=== PATIENT | female | born 1950 | race Caucasian/White ===

== ENCOUNTER → 2021-01-02 11:27 | Outpatient (CLI) | payer MEDICARE, SELFPAY ==
--- NOTE | ~2021-01-02 | US_ITS ---
EXAMINATION: US transvaginal EXAM DATE: 01/02/2021 12:05 INDICATION: Post menopausal bleeding. TECHNIQUE: Pelvic transvaginal sonogram was performed. There are multiple grayscale and Doppler imag es available for interpretation. There is no prior study for comparison. FINDINGS: Uterus measures 8.3 x 4.6 x 5.7 cm, demonstrating multiple fibroids, some of which are landon cified. These measure up to about 3.4 cm. Focal region which could be submucosal or pedunculated fibr oid within the endometrial canal, or could be abnormally thickened endometrium, region measuring 2.4 cm. Right adnexa: The ovary is not identified. There is no adnexal mass. Left adnexa: The ovary is not identified. There is no adnexal mass. IMPRESSION: Multiple fibroids with abnormally thickened endometrium versus submucosal/pedunculated fi broid. Endometrial thickening can be caused by hyperplasia, polyp, cancer. MRI pelvis might be able t o distinguish fibroid from endometrium. Reviewed, dictated and finalized at location G. IMPRESSION: Multiple fibroids with abnormally thickened endometrium versus subm ucosal/pedunculated fibroid. Endometrial thickening can be caused by hyperplasi a, polyp, cancer. MRI pelvis might be able to distinguish fibroid from endometr ium.
== END ==
PROVIDERS: Visit Provider Nurse Practitioner
DX: N95.0 Postmenopausal bleeding (principal); D25.9 Leiomyoma of uterus, unspecified
CPT/HCPCS: 76830

== ENCOUNTER 2021-02-08 02:09 | Day surgery (SDC) | payer MEDICARE, SELFPAY ==
[2021-02-02 10:54] VITALS: BMI 24.4
--- NOTE | 2021-02-05 18:13 | WPDANESEPP ---
Anes - Eval Pre Procedure Procedure: Operation Date: 02/08/21 09:45 Proposed Procedures p Hysteroscopy Dilation and Curettage - Cristal Busby MD Date/Time: 02/05/21 18:13 Pre Op Diagnosis: post menopausal bleeding Patient Data Age: 70 Gender: F Height: 1.55 m Weight: 58.63 kg Allergies Allergy/AdvReac Type Severity Reaction Status Date / Time No Known Allergies Allergy Verified 02/02/21 10:51 Home Medications Medication Instructions Recorded Confirmed Type cholecalciferol (vitamin D3) 125 mcg PO WEEKLY 02/02/21 02/02/21 History fluoxetine 10 mg HS 02/02/21 02/02/21 History levothyroxine 88 mcg QAM 02/02/21 02/02/21 History Patient hx anesthesia problems: none Family hx anesthesia problems: none PMFSH Past Medical History Medical History (Updated 02/05/21 @ 18:13 by Edward Marinelli DO) Anxiety GERD (gastroesophageal reflux disease) History of thyroid cancer Hypothyroidism Surgical History Surgical History (Updated 02/05/21 @ 18:13 by Edward Marinelli DO) History of thyroidectomy Social History Social History Smoking status: Former smoker Tobacco type: cigarettes Second hand tobacco smoke exposure: No Additional smoking assessment comments: STATES SMOKED SOCIALLY IN HER 20'S - QUIT AGE 30 Substance use: never Substance use type: does not use Living arrangements: with family Spiritual care concerns: No Exam Day of Procedure 02/05/21 18:13
--- NOTE | 2021-02-08 07:32 | WPDHPUPDATE1 ---
History and Physical Update Update Date/Time: 02/08/21 07:32 History and Physical has been reviewed, including an updated exam of the patient. There are NO changes in the patient's condition. Risks, benefits, and alternatives have been discussed and questions answered. Patient agrees to proceed with procedure.
--- NOTE | 2021-02-08 07:32 | PM.HPGS ---
History of Present Illness History of Present Illness Consent: Risks, benefits, and alternatives have been discussed and questions answered. Patient agrees to proceed with procedure. Chief complaint: post menopausal bleeding Narrative: Tess Gallego is a 70 year old female With an episode of postmenopausal bleeding. She underwent pelvic ultrasound which shows multiple fibroids making the measurement of the endometrium difficult. There is one area of possible endometrium versus a pedunculated fibroid measuring 2.4cm. It was recommended to proceed with hysteroscopy D and C to further evaluate. Risks of infection, bleeding, perforation, and possible pathology were reviewed. Patient voices understanding and agrees to proceed. Review of Systems Review of Systems: not repeated day of surgery; patient states no changes in status PMFSH Past Medical History Medical History (Updated 02/08/21 @ 07:57 by Cristal Busby MD) Anxiety GERD (gastroesophageal reflux disease) History of thyroid cancer Hypothyroidism (normal spontaneous vaginal delivery) x2 Surgical History Surgical History (Updated 02/05/21 @ 18:13 by Edward Marinelli DO) History of thyroidectomy Social History Social History Smoking status: Former smoker Tobacco type: cigarettes Second hand tobacco smoke exposure: No Additional smoking assessment comments: STATES SMOKED SOCIALLY IN HER 20'S - QUIT AGE 30 Substance use: never Substance use type: does not use Living arrangements: with family Spiritual care concerns: No Meds Home Medications and Allergies Home Medications Medication Instructions Recorded Confirmed Type cholecalciferol (vitamin D3) 125 mcg PO WEEKLY 02/02/21 02/02/21 History fluoxetine 10 mg HS 02/02/21 02/02/21 History levothyroxine 88 mcg QAM 02/02/21 02/02/21 History Allergies Allergy/AdvReac Type Severity Reaction Status Date / Time No Known Allergies Allergy Verified 02/02/21 10:51 Exam Const: General: healthy appearing, comfortable and no acute distress GI: GI Palp: No abdominal tenderness : External Female Exam: normal external appearance Speculum Exam - Vagina: normal appearance of the vagina and vagina atrophic Speculum Exam - Cervix: normal appearance of the cervix Bimanual exam- vagina & uterus: uterine size normal (firm) Bimanual Exam- Adnexa, other: Adnexal mass present (right side firm) on the right non-tender Assessment and Plan Assessment and plan (1) Post-menopausal bleeding: Code(s): N95.0 - Postmenopausal bleeding Status: Acute Assessment and Plan: plan to proceed with hysteroscopy with D&C to evaluate (2) Fibroids: Code(s): D21.9 - Benign neoplasm of connective and other soft tissue, unspecified Status: Acute
[2021-02-08 08:13] VITALS: BP 123/71; PULSE 65; RESP 16; TEMP 36.5; O2SAT 99
[2021-02-08] MEDS: ACETAMINOPHEN 500 MG TABLET 1000 MG PO (08:22)
[2021-02-08] MEDS: LACTATED RINGERS 1,000 ML 30 ML IV CONT (08:35)
--- NOTE | 2021-02-08 08:39 | P.PNAN_ITS ---
Anes - Eval Final PreProcedure Day of Procedure 02/08/21 08:39 Patient weight: normal Heart: regular rate and rhythm Lungs: clear to auscultation Airway: Mallampati scale class II Neurological: alert and oriented Last oral intake: >/= 8 hours ASA classification: II Emergent: no Anesthetic plan: proceed Anesthesia type and monitoring: general GIVS and standard monitoring Informed Consent: The patient's anesthetic plan and its attendant risks and b enefits were discussed with the patient/family/POA. Questions were solicited and answers provided to the satisfaction of the patient/family/POA.
[2021-02-08] MEDS: KETOROLAC 30 MG/ML VIAL (*BKC) 15 MG IV PUSH (09:34)
--- NOTE | 2021-02-08 09:45 | P.OP_ITS ---
Procedure Note - Detailed Date of Procedure 02/08/21 Pre-op Diagnosis post menopausal bleeding Post-op Diagnosis same Procedure Performed Hysteroscopy with D&C Surgeon Cristal Busby MD Anesthesia MAC and local Findings uterus sounds to 8cm there was a very irregular thickened vascular endometrium with punctate calcifications throughout no discrete masses Description of Procedure the patient was taken to the operating room and placed under anesthesia in the dorsal lithotomy position. She was prepped and draped in the usual sterile fashion. [place] speculum was placed in the vagina, cervix is grasped on the anterior lip with a tenaculum, and the cervix is injected with 1% lidocaine in each quadrant. The uterus is sounded to 8cm. The cervix is serially dilated with Hegar. The hysteroscope was placed with the stated findings. The hysteroscope was removed and the medium sharp curette used to sharply curette the endometrium until a good uterine cry was noted in all areas a large amount of material was obtained consistent with the visual appearance. All instruments are removed from the patient. The sponge, needle, and instrument counts are correct per the OR staff. The patient is awakened from anesthesia and taken to recovery in stable condition. Estimated Blood Loss 5 Drains No Packing No Pathology yes ( Endometrial) Complications No immediate complications Condition stable Disposition PACU
[2021-02-08 09:49] VITALS: BP 109/66; PULSE 59; RESP 14; O2SAT 96
[2021-02-08 10:13] VITALS: BP 103/71; PULSE 61; RESP 14
[2021-02-08 10:35] VITALS: BP 112/68; PULSE 57; RESP 16
== END 2021-02-08 10:40 | disposition home or self-care (01) ==
PROVIDERS: PCP Internal Medicine; Visit Provider Obstetrics & Gynecology Gynecology
PROC: 0U5B8ZZ Destruction of Endometrium, Via Natural or Artificial Opening Endoscopic (ICD-10-PCS; CPT 58563; principal; 2021-02-08 09:45)
DX: C54.1 Malignant neoplasm of endometrium (principal); N95.0 Postmenopausal bleeding; F41.9 Anxiety disorder, unspecified; K21.9 Gastro-esophageal reflux disease without esophagitis; E03.9 Hypothyroidism, unspecified; Z85.850 Personal history of malignant neoplasm of thyroid; Z87.891 Personal history of nicotine dependence
CPT/HCPCS: 58558; 88305; A9270; J1885; J2250; J2405; J2704; J3010; J7030; J7120